=== PATIENT | male | born 1960 | race Caucasian/White ===

== ENCOUNTER 2016-09-16 12:32 | Emergency (ER) | payer MEDICAID ==
--- NOTE | 2016-09-16 12:58 | EDM.PDOC ---
ED HPI GENERAL MEDICAL PROBLEM - General Chief Complaint: Skin Complaint Stated Complaint: BITE LT ARM Time Seen by Provider: 09/16/16 12:54 Source of Information: Reports: Patient History Limitations: Reports: No Limitations - History of Present Illness INITIAL COMMENTS - FREE TEXT/NARRATIVE: History of present illness: [56 rolled male presenting with onset of bite to left forearm. Patient indicates he had been cleaning out an old barn and he thinks he been bitten by spider.] Review of systems: As per history of present illness and below otherwise all systems reviewed and negative. Past medical history: As per history of present illness and as reviewed below otherwise noncontributory. Surgical history: As per history of present illness and as reviewed below otherwise noncontributory. Social history: No reported history of drug or alcohol abuse. Family history: As per history of present illness and as reviewed below otherwise noncontributory. Physical exam: HEENT: Atraumatic, normocephalic, pupils reactive, negative for conjunctival pallor or scleral icterus, mucous membranes moist, throat clear, neck supple, nontender, trachea midline. Lungs: Clear to auscultation, breath sounds equal bilaterally, chest nontender. Heart: S1S2, regular, negative for clicks, rubs, or JVD. Abdomen: Soft, nondistended, nontender. Negative for masses or hepatosplenomegaly. Negative for costovertebral tenderness. Pelvis: Stable nontender. Genitourinary: Deferred. Rectal: Deferred. Extremities: Atraumatic, negative for cords or calf pain. Left forearm with an ovoid area of swelling with the a small amount of induration, erythema, and some amount of warmth. Early stages of cellulitic changes. Neurovascular unremarkable. Neuro: Awake, alert, oriented. Cranial nerves II through XII unremarkable. Cerebellum unremarkable. Motor and sensory unremarkable throughout. Exam nonfocal. Diagnostics: [] Therapeutics: [] Impression: [Cellulitis] Plan: [Antibiotics] Definitive disposition and diagnosis as appropriate pending reevaluation and review of above. Left Lower Arm Pain Score (Numeric/FACES): 6 - Related Data Allergies Allergy/AdvReac Type Severity Reaction Status Date / Time bee stings Allergy Anaphylactic Uncoded 09/16/16 12:37 Shock Home Meds: Home Meds Lisinopril 1 tab PO DAILY 07/02/17 [History] Past Medical History HEENT History: Reports: None Cardiovascular History: Reports: Hypertension Neurological History: Reports: None Endocrine/Metabolic History: Reports: None - Infectious Disease History Infectious Disease History: Reports: Chicken Pox, Hepatitis C - Past Surgical History HEENT Surgical History: Reports: None GI Surgical History: Reports: Hernia Repair/Other Social & Family History - Tobacco Use Smoking Status *Q: Never Smoker ED ROS GENERAL - Review of Systems Review Of Systems: See Below (See history of present illness) ED EXAM, SKIN/RASH Exam: See Below (See history of present illness) Course - Vital Signs Last Recorded V/S: Last Vital Signs Temp 36.4 C 09/16/16 12:38 Pulse 65 09/16/16 12:38 Resp 16 09/16/16 12:38 BP 134/70 09/16/16 12:38 Pulse Ox 99 09/16/16 12:38 Departure - Departure Time of Disposition: 12:57 Disposition: Home, Self-Care 01 Condition: Good Clinical Impression: Cellulitis, Bug bite - Discharge Information Forms: ED Department Discharge Additional Instructions: The following information is given to patients seen in the emergency department who are being discharged to home. This information is to outline your options for follow-up care. We provide all patients seen in our emergency department with a follow-up referral. The need for follow-up, as well as the timing and circumstances, are variable depending upon the specifics of your emergency department visit. If you don't have a primary care physician on staff, we will provide you with a referral. We always advise you to contact your personal physician following an emergency department visit to inform them of the circumstance of the visit and for follow-up with them and/or the need for any referrals to a consulting specialist. The emergency department will also refer you to a specialist when appropriate. This referral assures that you have the opportunity for follow-up care with a specialist. All of these measure are taken in an effort to provide you with optimal care, which includes your follow-up. Under all circumstances we always encourage you to contact your private physician who remains a resource for coordinating your care. When calling for follow-up care, please make the office aware that this follow-up is from your recent emergency room visit. If for any reason you are refused follow-up, please contact the [facility] Emergency Department at and asked to speak to the emergency department charge nurse. Take medication as directed Follow-up with PCP in 1-2 days Return to ED as needed as discussed
== END 2016-09-16 13:04 | disposition home or self-care (01) ==
LOC: MW.ED 12:32
CPT/HCPCS: 99283

== ENCOUNTER 2016-09-20 09:34 | Emergency (ER) | payer MEDICAID ==
--- NOTE | 2016-09-20 09:41 | EDM.PDOC ---
ED HPI GENERAL MEDICAL PROBLEM - General Stated Complaint: PAIN IN BIG TOE ON LEFT FOOT Time Seen by Provider: 09/20/16 09:37 - History of Present Illness INITIAL COMMENTS - FREE TEXT/NARRATIVE: HISTORY AND PHYSICAL: History of present illness: Patient 56-year-old white male who presents with concern of left foot pain related to plantar fasciitis he is concerned about x-ray for possible stress fracture he has a scheduled appointment with podiatry he denies other trauma or concern Review of systems: As per history of present illness and below otherwise all systems reviewed and negative. Past medical history: As per history of present illness and as reviewed below otherwise noncontributory. Surgical history: As per history of present illness and as reviewed below otherwise noncontributory. Social history: No reported history of drug or alcohol abuse. Family history: As per history of present illness and as reviewed below otherwise noncontributory. Physical exam: HEENT: Atraumatic, normocephalic, pupils reactive, negative for conjunctival pallor or scleral icterus, mucous membranes moist, throat clear, neck supple, nontender, trachea midline. Lungs: Clear to auscultation, breath sounds equal bilaterally, chest nontender. Heart: S1S2, regular, negative for clicks, rubs, or JVD. Abdomen: Soft, nondistended, nontender. Negative for masses or hepatosplenomegaly. Negative for costovertebral tenderness. Pelvis: Stable nontender. Genitourinary: Deferred. Rectal: Deferred. Extremities: Patient is tenderness palpation on the plantar aspect of his left foot with slightly increased tenderness near the first distal metatarsal is no erythema no warmth CMS neurovascular exam is unremarkable Neuro: Awake, alert, oriented. Cranial nerves II through XII unremarkable. Cerebellum unremarkable. Motor and sensory unremarkable throughout. Exam nonfocal. Diagnostics: X-ray left foot Therapeutics: To be determined Impression: #1 left foot pain #2 history of plantar fasciitis Definitive disposition and diagnosis as appropriate pending reevaluation and review of above. - Related Data Allergies Allergy/AdvReac Type Severity Reaction Status Date / Time bee stings Allergy Anaphylactic Uncoded 09/20/16 09:51 Shock Home Meds: Home Meds Lisinopril 20 mg PO DAILY 09/16/16 [History] Sulfamethoxazole/Trimethoprim [Bactrim Ds Tablet] 1 each PO BID #20 tablet 09/16 [Rx] Past Medical History HEENT History: Reports: None Cardiovascular History: Reports: Hypertension Neurological History: Reports: None Endocrine/Metabolic History: Reports: None - Infectious Disease History Infectious Disease History: Reports: Chicken Pox, Hepatitis C - Past Surgical History HEENT Surgical History: Reports: None GI Surgical History: Reports: Hernia Repair/Other Social & Family History - Tobacco Use Smoking Status *Q: Never Smoker ED ROS GENERAL - Review of Systems Review Of Systems: ROS reveals no pertinent complaints other than HPI. ED EXAM, GENERAL - Physical Exam Exam: See Below (See dictation) Course - Vital Signs Last Recorded V/S: Last Vital Signs Temp 36.3 C 09/20/16 09:40 Pulse 60 09/20/16 09:40 Resp 18 09/20/16 09:40 BP 131/79 09/20/16 09:40 Pulse Ox 97 09/20/16 09:40 - Orders/Labs/Meds Orders: Active Orders 24 hr Category Date Time Status Foot 2V Lt [CR] Stat Exams 09/20/16 09:39 Taken Departure - Departure Time of Disposition: 10:21 Disposition: Home, Self-Care 01 Condition: Good Clinical Impression: Foot pain - Discharge Information Additional Instructions: The following information is given to patients seen in the emergency department who are being discharged to home. This information is to outline your options for follow-up care. We provide all patients seen in our emergency department with a follow-up referral. The need for follow-up, as well as the timing and circumstances, are variable depending upon the specifics of your emergency department visit. If you don't have a primary care physician on staff, we will provide you with a referral. We always advise you to contact your personal physician following an emergency department visit to inform them of the circumstance of the visit and for follow-up with them and/or the need for any referrals to a consulting specialist. The emergency department will also refer you to a specialist when appropriate. This referral assures that you have the opportunity for followup care with a specialist. All of these measure are taken in an effort to provide you with optimal care, which includes your followup. Under all circumstances we always encourage you to contact your private physician who remains a resource for coordinating your care. When calling for followup care, please make the office aware that this follow-up is from your recent emergency room visit. If for any reason you are refused follow-up, please contact the [facility] emergency department at and asked to speak to the emergency department charge nurse. Motrin/Tylenol as directed keep podiatry appointment as scheduled and return as needed as discussed - My Orders Last 24 Hours: My Active Orders 09/20/16 09:39 Foot 2V Lt [CR] Stat - Assessment/Plan Last 24 Hours: My Active Orders 09/20/16 09:39 Foot 2V Lt [CR] Stat
--- NOTE | 2016-09-20 10:23 | CR ---
EXAMINATION: Left foot HISTORY: Pain COMPARISON: None TECHNIQUE: 2 views FINDINGS/IMPRESSION: There is no acute osseous abnormality, dislocation, or fracture identified. Bon e mineralization and joint spaces are grossly preserved. No joint effusion or soft tissue swelling.
[2016-09-20 11:12] VITALS: BP 122/74
== END 2016-09-20 10:40 | disposition home or self-care (01) ==
LOC: MW.ED 09:34
DX: M79.672 Pain in left foot (principal); I10 Essential (primary) hypertension; Z79.899 Other long term (current) drug therapy; Z91.030 Bee allergy status; Z98.890 Other specified postprocedural states
CPT/HCPCS: 73620-26-LT; 73620-LT; 99282; 99283